=== PATIENT | female | born 1975 | race Caucasian/White ===

== ENCOUNTER 2018-06-01 18:24 | Emergency (ER) | payer BC, OTHER ==
[~2018-06-01] VITALS: Ht 167.6 cm; Wt 125.0 kg
[~2018-06-01 18:24] MED LIST: METF-414 PO; PIOG30TA10 PO; SIMV20TA6 PO
[2018-06-01] MEDS ORDERED: SODIUM CHLORIDE 0.9% 1,000 ML IV ONE (18:50)
[2018-06-01 19:42] LABS: BASOPHILS % 0.4 % (0.0-2.0); EOSINOPHILS % 2.3 % (0.0-5.0); HEMATOCRIT. 38.9 % (36.0-48.0); HEMOGLOBIN. 13.2 g/dL (12.0-16.0); LYMPHOCYTES % 25.9 % (20.0-50.0); MEAN CORPUSCULAR HEMOGLOBIN 29.7 pg (28.0-32.0); MEAN CORPUSCULAR VOLUME 87.5 fL (81.0-99.0); MEAN PLATELET VOLUME 7.8 fl (7.4-10.4); MONOCYTES % 6.1 % (2.0-8.0); NEUTROPHILS % 65.3 % (40.0-76.0); PLATELET 278 x1000/uL (130-400); RED BLOOD CELL COUNT 4.45 mill/uL (4.2-5.4)
[2018-06-01 19:47] LABS: CHLORIDE 105 mEq/L (98-107)
[2018-06-01] MEDS ORDERED: POTASSIUM CHLORIDE 20MEQ TABLET SR PO ONE (20:30)
[2018-06-01 21:14] LABS: CLARITY URINE CLEAR (CLEAR); COLOR URINE YELLOW (YELLOW); KETONES URINE NEGATIVE (NEGATIVE); LEUKOCYTE ESTERASE URINE NEGATIVE (NEGATIVE); NITRITE URINE POSITIVE (NEGATIVE); OCCULT BLOOD URINE NEGATIVE (NEGATIVE); PH URINE 5.5 (4.5-8.0); PROTEIN URINE NEGATIVE (NEGATIVE); SPECIFIC GRAVITY URINE 1.008 (1.005-1.030); UROBILINOGEN URINE 0.2 E.U./dL (0.2-1.0)
[2018-06-01 23:40] VITALS: BP 141/96
== END 2018-06-01 23:40 | disposition home or self-care (01) ==
LOC: ER 18:24
DX: N39.0 Urinary tract infection, site not specified (principal); R51 Headache; F41.9 Anxiety disorder, unspecified; K21.9 Gastro-esophageal reflux disease without esophagitis; E11.9 Type 2 diabetes mellitus without complications; I10 Essential (primary) hypertension; Z90.49 Acquired absence of other specified parts of digestive tract
CPT/HCPCS: 36415; 70450; 80053; 81003; 81025; 85025; 93005; 96360; 96361; 99284; J7030

== ENCOUNTER 2021-06-03 13:47 | Emergency (ER) | payer OTHER ==
[~2021-06-03] VITALS: Ht 162.6 cm; Wt 146.0 kg
[~2021-06-03 13:47] MED LIST changes: +SIMV-43 PO; -SIMV20TA6 PO
[2021-06-03 14:26] LABS: BASOPHILS % 0.9 % (0.0-2.0); HEMATOCRIT. 39.1 % (36.0-48.0); HEMOGLOBIN. 13.7 g/dL (12.0-16.0); LYMPHOCYTES % 35.6 % (20.0-50.0); MEAN CORPUSCULAR HEMOGLOBIN 30.1 pg (28.0-32.0); MEAN PLATELET VOLUME 7.4 fl (7.4-10.4); MONOCYTES % 5.7 % (2.0-8.0); NEUTROPHILS % 55.8 % (40.0-76.0); PLATELET 275 x1000/uL (130-400); RED BLOOD CELL COUNT 4.55 mill/uL (4.2-5.4); RED CELL DISTRIBUTION WIDTH 14.5 % (11.6-14.6)
[2021-06-03 14:33] LABS: CHLORIDE 104 mEq/L (98-107)
[2021-06-03 14:37] LABS: ETHANOL BLOOD < 10 mg/dL
[2021-06-03 15:15] LABS: *AMPHETAMINES SCREEN URINE NEGATIVE (NEGATIVE); *BARBITURATES SCREEN URINE NEGATIVE (NEGATIVE); *BENZODIAZEPINES SCREEN URINE NEGATIVE (NEGATIVE); *COCAINE SCREEN URINE NEGATIVE (NEGATIVE); METHADONE URINE SCREEN NEGATIVE (NEGATIVE); OPIATES URINE SCREEN NEGATIVE (NEGATIVE)
[2021-06-03] MEDS ORDERED: MAGNESIUM/ALUMINUM HYDROXIDE/SIMETHICONE 30ML UDC PO NR (15:15)
[2021-06-03] MEDS ORDERED: POTASSIUM CHLORIDE 20MEQ TABLET SR PO NR (15:15)
[2021-06-03 15:16] LABS: CANNABINOID URINE SCREEN NEGATIVE (NEGATIVE); PHENCYCLIDINE URINE SCREEN NEGATIVE (NEGATIVE)
[2021-06-03] MEDS: FAMOTIDINE 20MG/2ML VIAL IV NR (15:21)
[2021-06-03 15:23] LABS: HCG SCREEN NEGATIVE
[2021-06-03] MEDS ORDERED: FAMO40TA70 MT (16:31)
[2021-06-03] MEDS ORDERED: MAG-55 MT (16:31)
[2021-06-03 17:14] VITALS: BP 114/72
== END 2021-06-03 17:23 | disposition home or self-care (01) ==
LOC: ER 13:47
DX: K21.9 Gastro-esophageal reflux disease without esophagitis (principal); I10 Essential (primary) hypertension; Z90.49 Acquired absence of other specified parts of digestive tract; Z98.890 Other specified postprocedural states
CPT/HCPCS: 36415; 71045; 80053; 80305; 80320; 83880; 84484; 84703; 85025; 85379; 93005; 96374; 99285; J3490; G0480